=== PATIENT | female | born 1935 | race Caucasian/White ===

== ENCOUNTER 2017-04-30 08:52 | Inpatient (IN) ==
[2017-04-30] MEDS ORDERED: ASPIRIN 325 MG TABLET PO STA (09:15)
[2017-04-30] MEDS ORDERED: ONDANSETRON 4 MG/2 ML VIAL IV STA (09:15)
[2017-04-30] MEDS ORDERED: HYDROmorphone 2 MG/1 ML VIAL IV STA ×2 (09:15→11:48)
[2017-04-30] MEDS ORDERED: ONDANSETRON 4 MG/2 ML VIAL ONE (09:26)
[2017-04-30] MEDS ORDERED: ASPIRIN 325 MG TABLET ONE (09:27)
[2017-04-30] MEDS ORDERED: HYDROmorphone 2 MG/1 ML VIAL ONE ×2 (09:27→11:50)
[2017-04-30] MEDS ORDERED: METOPROLOL TARTRATE 5 MG/5 ML VIAL IV STA ×2 (09:34→12:37)
[2017-04-30 09:50] LABS: Basophils # 0.1 10*3/uL (0.0-0.2); Basophils % 0.7 % (0.0-0.8); Eosinophils # 0.1 10*3/uL (0.0-0.87); Eosinophils % 0.7 % (0.00-10.9); Hematocrit 41.2 VOL% (35.7-47.0); Hemoglobin 14.1 GM/DL (12.0-16.0); Immature Granulocytes % 0.5 %; Immature Granulocytes Absolute 0.07 #; Lymphocytes # 2.3 10*3/uL (1.4-4.0); Lymphocytes % 15.6 % (21.3-54.2); Mean Corpuscular HGB Conc 34.2 GM/DL (32-36); Mean Corpuscular Hemoglobin 31 PG (27-34); Mean Platelet Volume 10.8 FL (9.6-12.0); Monocytes # 0.8 10*3/uL (0.11-0.8); Monocytes % 5.5 % (1.7-12.7); Neutrophils # 11.3 10*3/uL (1.4-7.4); Platelet Count 272 T/CUMM (130-400); Red Blood Count 4.63 MC/CUMM (3.8-5.5); Red Cell Distribution Width 13.5 % (9.3-17.3); White Blood Count 14.7 T/CUMM (4-12)
[2017-04-30] MEDS ORDERED: METOPROLOL TARTRATE 5 MG/5 ML VIAL IV ONE ×2 (09:51→12:26)
[2017-04-30 09:56] LABS: INR 0.9; PT Patient Result 9.9 SECS
[2017-04-30 10:18] LABS: Albumin 3.9 G/DL (3.4-5.0); Bilirubin,Total 0.4 MG/DL (0.2-1.0); Calcium 8.5 MG/DL (8.5-10.1); Potassium 3.2 MMOL/L (3.5-5.1); Total Protein 7.7 G/DL (6.4-8.3)
[2017-04-30] MEDS ORDERED: ENOXAPARIN 60 MG/0.6 ML SYRINGE SUBCUT STA (12:37)
[2017-04-30] MEDS ORDERED: ENOXAPARIN 60 MG/0.6 ML SYRINGE ONE (13:45)
[2017-04-30] MEDS ORDERED: MORPHINE 2 MG/1 ML SYRINGE ONE (14:46)
[2017-04-30] MEDS ORDERED: POTASSIUM CHLORIDE RIDER 10 MEQ in PREMIX 1 EACH IV PRN (14:46)
[2017-04-30] MEDS ORDERED: MAGNESIUM SULF RIDER 2 GM in PREMIX 1 EACH IV PRN (14:46)
[2017-04-30] MEDS ORDERED: diphenhydrAMINE CAP 25 MG CAPSULE PO ONE (14:46)
[2017-04-30] MEDS ORDERED: DIAZEPAM 5 MG TABLET PO ONE (14:46)
[2017-04-30] MEDS ORDERED: MORPHINE 2 MG/1 ML SYRINGE IV STA (14:52)
[2017-04-30] MEDS ORDERED: LIDOCAINE 1% 20 ML VIAL ONE (15:34)
[2017-04-30] MEDS ORDERED: HEPARIN/NACL 0.9% 2 UNITS/ML 2,000 ML IV ONE (15:36)
[2017-04-30] MEDS ORDERED: DIAZEPAM 5 MG TABLET ONE (15:45)
[2017-04-30] MEDS ORDERED: diphenhydrAMINE CAP 25 MG CAPSULE ONE (15:45)
[2017-04-30] MEDS ORDERED: MIDAZOLAM 2 MG/2 ML VIAL ONE (16:03)
[2017-04-30] MEDS ORDERED: fentaNYL 100 MCG/2 ML VIAL ONE (16:03)
[2017-04-30] MEDS ORDERED: VERAPAMIL 5 MG/2 ML VIAL ONE (16:12)
[2017-04-30] MEDS ORDERED: NITROGLYCERIN DRIP 50 MG/250 ML BOTTLE IV ONE (16:12)
[2017-04-30] MEDS ORDERED: EPTIFIBATIDE 20,000 MCG/10 ML VIAL ONE (16:49)
[2017-04-30] MEDS ORDERED: EPTIFIBATIDE 75 MG/100 ML BOTTLE IV ONE (16:52)
[2017-04-30] MEDS ORDERED: EPTIFIBATIDE 75 MG/100 ML BOTTLE IV SCH (16:56)
[2017-04-30] MEDS ORDERED: CLOPIDOGREL 300 MG TABLET ONE (17:14)
[2017-04-30] MEDS: ATORVASTATIN 40 MG TABLET PO SCH (22:22)
[2017-04-30] MEDS: SODIUM CHLORIDE 0.45% 1,000 ML IV SCH ×2 (22:27→22:28)
[2017-05-01] MEDS: traMADol 50 MG TABLET PO PRN ×2 (04:19→21:20)
[2017-05-01] MEDS ORDERED: NITROGLYCERIN DRIP 50 MG/250 ML BOTTLE IV ONE (06:13)
[2017-05-01 07:26] LABS: Risk Ratio 3.89
[2017-05-01] MEDS: ONDANSETRON 4 MG/2 ML VIAL IV PRN ×2 (10:44→21:20)
[2017-05-01] MEDS: CLOPIDOGREL 75 MG TABLET PO SCH (10:45)
[2017-05-01] MEDS: ASPIRIN EC 81 MG TABLET PO SCH (10:45)
[2017-05-01] MEDS ORDERED: ENOXAPARIN 40 MG/0.4 ML SYRINGE SUBCUT SCH (11:28)
[2017-05-01] MEDS: METOPROLOL TARTRATE 25 MG TABLET PO SCH ×2 (12:19→21:53)
[2017-05-01] MEDS: SODIUM CHLORIDE 0.45% 1,000 ML IV SCH ×2 (19:25→23:01)
[2017-05-01] MEDS: ATORVASTATIN 40 MG TABLET PO SCH (21:53)
[2017-05-02] MEDS: METOPROLOL TARTRATE 25 MG TABLET PO SCH ×2 (09:06→21:41)
[2017-05-02] MEDS: CLOPIDOGREL 75 MG TABLET PO SCH (09:06)
[2017-05-02] MEDS: ASPIRIN EC 81 MG TABLET PO SCH (09:06)
[2017-05-02 09:46] LABS: Basophils # 0.1 10*3/uL (0.0-0.2); Basophils % 0.3 % (0.0-0.8); Eosinophils % 0.1 % (0.00-10.9); Hemoglobin 12.5 GM/DL (12.0-16.0); Immature Granulocytes % 0.5 %; Immature Granulocytes Absolute 0.09 #; Lymphocytes % 11.4 % (21.3-54.2); Mean Corpuscular HGB Conc 33.8 GM/DL (32-36); Mean Corpuscular Hemoglobin 30 PG (27-34); Mean Corpuscular Volume 88.9 FL (87-102); Mean Platelet Volume 11.2 FL (9.6-12.0); Monocytes # 1.3 10*3/uL (0.11-0.8); Monocytes % 7.3 % (1.7-12.7); Neutrophils # 14.3 10*3/uL (1.4-7.4); Neutrophils % 80.4 % (38.7-73.9); Platelet Count 274 T/CUMM (130-400); Red Blood Count 4.16 MC/CUMM (3.8-5.5); Red Cell Distribution Width 13.5 % (9.3-17.3); White Blood Count 17.8 T/CUMM (4-12)
[2017-05-02 10:15] LABS: Albumin 2.9 G/DL (3.4-5.0); Bilirubin,Direct 0.22 MG/DL (0.0-0.20); Bilirubin,Total 0.6 MG/DL (0.2-1.0); Calcium 7.8 MG/DL (8.5-10.1); Osmolality,Calculated 275.8 MOS/KG (273-304); Potassium 3.1 MMOL/L (3.5-5.1); Total Protein 6.4 G/DL (6.4-8.3)
[2017-05-02] MEDS: ONDANSETRON 4 MG/2 ML VIAL IV PRN ×2 (11:32→23:11)
[2017-05-02] MEDS: traMADol 50 MG TABLET PO PRN (11:33)
[2017-05-02] MEDS: SODIUM CHLORIDE 0.45% 1,000 ML IV SCH ×2 (11:41→18:29)
[2017-05-02] MEDS ORDERED: TISSUE ADHESIVE 1 EACH APPLICATOR TOP ONE (12:23)
[2017-05-02] MEDS ORDERED: POTASSIUM CHLORIDE INJ 20 MEQ in SODIUM CHLORIDE 0.9% 250 ML IV ONE (13:30)
[2017-05-02] MEDS ORDERED: HYDROmorphone 2 MG/1 ML VIAL IV PRN (15:17)
[2017-05-02] MEDS ORDERED: fentaNYL 100 MCG/2 ML VIAL ONE (15:38)
[2017-05-02] MEDS ORDERED: ROCURONIUM 100 MG/10 ML VIAL IV ONE (15:38)
[2017-05-02] MEDS ORDERED: DEXAMETHASONE 10 MG/1 ML VIAL ONE (15:38)
[2017-05-02] MEDS ORDERED: NEOSTIGMINE 10 MG/10 ML VIAL ONE (15:38)
[2017-05-02] MEDS ORDERED: PROPOFOL 200 MG/20 ML VIAL IV ONE (15:38)
[2017-05-02] MEDS ORDERED: ACETAMINOPHEN 1,000 MG/100 ML VIAL IV ONE (15:38)
[2017-05-02] MEDS ORDERED: ONDANSETRON 4 MG/2 ML VIAL ONE (15:38)
[2017-05-02] MEDS ORDERED: GLYCOPYRROLATE 0.4 MG/2 ML VIAL ONE (15:38)
[2017-05-02] MEDS ORDERED: SUCCINYLCHOLINE 200 MG/10 ML VIAL ONE (15:38)
[2017-05-02] MEDS ORDERED: DESFLURANE 1 UNIT/15 MINUTE INH ONE (15:38)
[2017-05-02] MEDS: CIPROFLOXACIN INJ 400 MG in PREMIX 1 EACH IV SCH (16:23)
[2017-05-02] MEDS: metroNIDAZOLE INJ 500 MG in PREMIX 1 EACH IV SCH (16:24)
[2017-05-02] MEDS: ATORVASTATIN 40 MG TABLET PO SCH (21:41)
[2017-05-03] MEDS: metroNIDAZOLE INJ 500 MG in PREMIX 1 EACH IV SCH ×4 (00:30→23:52)
[2017-05-03] MEDS: SODIUM CHLORIDE 0.45% 1,000 ML IV SCH ×3 (00:40→21:15)
[2017-05-03 03:01] LABS: Basophils % 0.1 % (0.0-0.8); Hematocrit 33.8 VOL% (35.7-47.0); Hemoglobin 11.2 GM/DL (12.0-16.0); Immature Granulocytes % 0.9 %; Immature Granulocytes Absolute 0.15 #; Lymphocytes # 1.1 10*3/uL (1.4-4.0); Lymphocytes % 6.9 % (21.3-54.2); Mean Corpuscular HGB Conc 33.1 GM/DL (32-36); Mean Corpuscular Hemoglobin 30 PG (27-34); Mean Corpuscular Volume 90.1 FL (87-102); Mean Platelet Volume 11.3 FL (9.6-12.0); Monocytes # 0.8 10*3/uL (0.11-0.8); Monocytes % 4.7 % (1.7-12.7); Neutrophils # 14.3 10*3/uL (1.4-7.4); Neutrophils % 87.4 % (38.7-73.9); Platelet Count 256 T/CUMM (130-400); Red Blood Count 3.75 MC/CUMM (3.8-5.5); Red Cell Distribution Width 13.4 % (9.3-17.3); White Blood Count 16.3 T/CUMM (4-12)
[2017-05-03 03:32] LABS: Albumin 2.5 G/DL (3.4-5.0); Bilirubin,Total 0.5 MG/DL (0.2-1.0); Calcium 7.6 MG/DL (8.5-10.1); Potassium 3.9 MMOL/L (3.5-5.1); Total Protein 6.2 G/DL (6.4-8.3)
[2017-05-03] MEDS: CIPROFLOXACIN INJ 400 MG in PREMIX 1 EACH IV SCH ×2 (04:23→16:20)
[2017-05-03 07:51] LABS: Apearance,Urine Slightly Hazy (Clear); Bilirubin,Urine Negative (Negative); Blood, Urine Negative (Negative); Glucose,Urine (UA) Negative (Negative); Ketones,Urine 5 mg/dL (Negative); Mucus,Urine Occasional /LPF (Occasional); Nitrite,Urine Negative (Negative); Protein,Urine Negative; RBC,Urine 1 /HPF (0-4); Squamous Epithelial Cell,Urine Occasional /HPF (0-10); Urine Color Yellow (Yellow); WBC,Urine 2 /HPF (0-6)
[2017-05-03] MEDS: CLOPIDOGREL 75 MG TABLET PO SCH (08:13)
[2017-05-03] MEDS: ASPIRIN EC 81 MG TABLET PO SCH (08:13)
[2017-05-03] MEDS: METOPROLOL TARTRATE 25 MG TABLET PO SCH ×2 (08:13→21:15)
[2017-05-03] MEDS: ONDANSETRON 4 MG/2 ML VIAL IV PRN (15:24)
[2017-05-03] MEDS: ATORVASTATIN 40 MG TABLET PO SCH (21:15)
[2017-05-04] MEDS: SODIUM CHLORIDE 0.45% 1,000 ML IV SCH (00:11)
[2017-05-04] MEDS: CIPROFLOXACIN INJ 400 MG in PREMIX 1 EACH IV SCH (04:50)
[2017-05-04 07:35] LABS: Basophils # 0.1 10*3/uL (0.0-0.2); Basophils % 0.5 % (0.0-0.8); Eosinophils # 0.1 10*3/uL (0.0-0.87); Eosinophils % 0.6 % (0.00-10.9); Hematocrit 35.2 VOL% (35.7-47.0); Hemoglobin 11.7 GM/DL (12.0-16.0); Immature Granulocytes % 0.6 %; Immature Granulocytes Absolute 0.07 #; Lymphocytes # 1.9 10*3/uL (1.4-4.0); Lymphocytes % 16.1 % (21.3-54.2); Mean Corpuscular HGB Conc 33.2 GM/DL (32-36); Mean Corpuscular Hemoglobin 30 PG (27-34); Mean Corpuscular Volume 88.9 FL (87-102); Mean Platelet Volume 10.7 FL (9.6-12.0); Monocytes % 8.5 % (1.7-12.7); Neutrophils # 8.8 10*3/uL (1.4-7.4); Neutrophils % 73.7 % (38.7-73.9); Platelet Count 295 T/CUMM (130-400); Red Blood Count 3.96 MC/CUMM (3.8-5.5); Red Cell Distribution Width 13.3 % (9.3-17.3)
[2017-05-04] MEDS: METOPROLOL TARTRATE 25 MG TABLET PO SCH (08:00)
[2017-05-04] MEDS: CLOPIDOGREL 75 MG TABLET PO SCH (08:00)
[2017-05-04] MEDS: ASPIRIN EC 81 MG TABLET PO SCH (08:00)
[2017-05-04] MEDS: metroNIDAZOLE INJ 500 MG in PREMIX 1 EACH IV SCH (13:29)
[2017-05-04 13:34] VITALS: BP 136/78
== END 2017-05-04 14:35 | disposition home or self-care (01) | DRG 247 ==
LOC: N.ED 08:52 → N.TELES 13:44 → N.SDS 15:20 → N.ED 15:50 → N.TELES 20:44
PROVIDERS: ADMIT Internal Medicine Cardiovascular Disease; ATTEND Internal Medicine Cardiovascular Disease
PROC: LAPCHOL (2017-05-02 13:37)